=== PATIENT | female | born 1935 | race Caucasian/White ===

== ENCOUNTER 2018-06-27 12:37 | Outpatient (CLI) | payer MEDICARE ==
--- NOTE | 2018-06-27 14:01 | MRI ---
MRI LUMBAR SPINE WITHOUT CONTRAST: 06/27/18 Multiplanar and multisequential imaging lumbar spine obtained. INDICATIONS: Lumbar radiculopathy. Comparison made to CT lumbar spine dated 11/05/12. FINDINGS: Wedge compression deformity of the T12 vertebrae is again noted. This was present on the 2013 exam an d does not appear significantly changed. There is mild anterior wedging of the T11 vertebrae. Degener ative changes are present at T10-T11, T11-T12 and T12-L1 with anterior osteophytes. There is mild retropulsion of the posterior superior corner of T12 at the T11-T12 disc. This is a sta ble finding from 2013. At the T11-T12 disc, there is mild bulge associated with mild retropulsion which flattens the thecal sac. Mild central canal stenosis is present, stable from the prior CT of 2012. At T12-L1, no significant disc bulge. No significant central canal or foraminal stenosis. The lumbar vertebrae maintain normal height and alignment. There is a scoliotic curvature of the lumb ar spine with convexity to the right with AP at T12. At L1-2 disc level, there is mild disc bulge flattening the thecal sac. Facet hypertrophy. No signifi cant central canal or foraminal stenosis. At L2-3, mild diffuse disc bulge flattens the thecal sac. Mild facet and ligamentous hypertrophy. Mil d central canal stenosis. Mild asymmetric disc bulge to the left encroaches in the foramina and appea rs to contact the exiting left nerve root. At L3-4, disc bulge flattens the anterior thecal sac. Mild facet hypertrophy. Mild central canal sten osis. Right foraminal narrowing due to asymmetric disc osteophyte complex projecting over the right f oramina. No definite impingement on the nerve root. At L4-5, disc bulge. Facet and ligamentous hypertrophy. Mild central canal stenosis. Right foraminal stenosis secondary to asymmetric disc osteophyte complex and facet hypertrophy producing right forami nal stenosis. There appears to be contract with the exiting right L4 nerve root. At L5-S1, mild disc bulge. Facet hypertrophy. No central canal or foraminal stenosis. IMPRESSION: 1. Compression deformity of the T12 vertebra with anterior wedging of T11 appears stable from . Mild retropulsion of the posterior superior corner of T12 is stable, resulting in mild central ca nal stenosis. 2. There is a scoliotic curvature with degenerative changes in the lumbar spine. Mild central ca nal stenosis and foraminal encroachment as described above. POS: DREW
== END 2018-06-27 12:38 | disposition home or self-care (01) ==
LOC: TBSIIMAG 12:37
PROVIDERS: ATTEND Neurological Surgery
DX: M47.26 Other spondylosis with radiculopathy, lumbar region (principal); M48.061 Spinal stenosis, lumbar region without neurogenic claudication; M41.9 Scoliosis, unspecified; M48.54XD Collapsed vertebra, not elsewhere classified, thoracic region, subsequent encounter for fracture with routine healing; M43.8X4 Other specified deforming dorsopathies, thoracic region; M48.04 Spinal stenosis, thoracic region
CPT/HCPCS: 72148